=== PATIENT | female | born 1985 | race Caucasian/White ===

== ENCOUNTER 2019-08-04 20:10 | Emergency (ER) | payer OTHER ==
[~2019-08-04] VITALS: Ht 162.6 cm; Wt 95.3 kg
[~2019-08-04 20:10] MED LIST: PERCOCET 5/3251 TAB PO; SURFAK240 M1 PO
[2019-08-04] MEDS ORDERED: IPRAT-ALBUT 0.5-3 ML IH (21:09)
[2019-08-04] MEDS ORDERED: CLARITIN10 MG PO (21:09)
[2019-08-04] MEDS ORDERED: TUSNEL LIQUID178 ML PO (21:09)
[2019-08-04] MEDS ORDERED: ZITHROMAX500 MG PO (21:09)
== END 2019-08-04 21:33 | disposition home or self-care (01) ==
LOC: ER 20:10
DX: R05 Cough (principal)